=== PATIENT | female | born 1995 | race Caucasian/White ===

== ENCOUNTER 2017-01-01 18:53 | Emergency (ER) | payer BC, OTHER ==
--- NOTE | 2017-01-01 19:23 | EDM.PDOC ---
ED HPI GENERAL MEDICAL PROBLEM - General Chief Complaint: General Stated Complaint: LOWER ABD PAIN, N&V Time Seen by Provider: 01/01/17 19:04 Source of Information: Reports: Patient History Limitations: Reports: No limitations - History of Present Illness INITIAL COMMENTS - FREE TEXT/NARRATIVE: History of present illness: [21-year-old female coming in complaining of lower pelvic pain. Patient indicates there is a slim change B. secondary to unprotected sex and irregular consumption of her control pills. Patient indicates she has had serial bouts of vomiting 3-4 times a day and today she has now presented with some foul diarrhea.] Review of systems: As per history of present illness and below otherwise all systems reviewed and negative. Past medical history: As per history of present illness and as reviewed below otherwise noncontributory. Surgical history: As per history of present illness and as reviewed below otherwise noncontributory. Social history: No reported history of drug or alcohol abuse. Family history: As per history of present illness and as reviewed below otherwise noncontributory. Physical exam: HEENT: Atraumatic, normocephalic, pupils reactive, negative for conjunctival pallor or scleral icterus, mucous membranes moist, throat clear, neck supple, nontender, trachea midline. Lungs: Clear to auscultation, breath sounds equal bilaterally, chest nontender. Heart: S1S2, regular, negative for clicks, rubs, or JVD. Abdomen: Soft, nondistended, nontender. Negative for masses or hepatosplenomegaly. Negative for costovertebral tenderness. Pelvis: Stable nontender. Genitourinary: Deferred. Rectal: Deferred. Extremities: Atraumatic, negative for cords or calf pain. Neurovascular unremarkable. Neuro: Awake, alert, oriented. Cranial nerves II through XII unremarkable. Cerebellum unremarkable. Motor and sensory unremarkable throughout. Exam nonfocal. Patient responded well to fluids and Zofran here without any further signs of nausea vomiting and/or diarrhea the Diagnostics: [CBC, CMP, UA, urine hCG] Therapeutics: [IV and as a] Impression: [Gastroenteritis] Plan: [Zofran her fluid, ADT] Definitive disposition and diagnosis as appropriate pending reevaluation and review of above. Lower Abdominal Pain Score (Numeric/FACES): 3 - Related Data Allergies Allergy/AdvReac Type Severity Reaction Status Date / Time No Known Allergies Allergy Verified 01/01/17 19:11 Home Meds: Home Meds Control 01/01/17 [History] Past Medical History - Past Surgical History Other Musculoskeletal Surgeries/Procedures:: right knee surgery Social & Family History - Tobacco Use Smoking Status *Q: Never Smoker ED ROS GENERAL - Review of Systems Review Of Systems: See Below (See history of present illness) ED EXAM, GENERAL - Physical Exam Exam: See Below (See history of present illness) Course - Vital Signs Last Recorded V/S: Last Vital Signs Temp 36.4 C 01/01/17 19:11 Pulse 75 01/01/17 19:11 Resp 16 01/01/17 19:11 BP 139/86 01/01/17 19:11 Pulse Ox 99 01/01/17 19:11 - Orders/Labs/Meds Labs: Laboratory Tests 01/01/17 01/01/17 01/01/17 Range/Units 19:36 19:36 20:05 WBC 12.08 H (4.0-11.0) K/uL RBC 4.51 (4.30-5.90) M/uL Hgb 13.2 (12.0-16.0) g/dL Hct 40.0 (36.0-46.0) % MCV 88.7 (80.0-98.0) fL MCH 29.3 (27.0-32.0) pg MCHC 33.0 (31.0-37.0) g/dL RDW Std Deviation 43.9 (28.0-62.0) fl RDW Coeff of Larisa 14 (11.0-15.0) % Plt Count 265 (150-400) K/uL MPV 9.90 (7.40-12.00) fL Neut % (Auto) 78.4 (48.0-80.0) % Lymph % (Auto) 16.9 (16.0-40.0) % Loving % (Auto) 3.8 (0.0-15.0) % Eos % (Auto) 0.7 (0.0-7.0) % Baso % (Auto) 0.2 (0.0-1.5) % Neut # (Auto) 9.5 H (1.4-5.7) K/uL Lymph # (Auto) 2.0 (0.6-2.4) K/uL Loving # (Auto) 0.5 (0.0-0.8) K/uL Eos # (Auto) 0.1 (0.0-0.7) K/uL Baso # (Auto) 0.0 (0.0-0.1) K/uL Nucleated RBC % 0.0 /100WBC Nucleated RBCs # 0 K/uL Sodium 138 (136-146) mmol/L Potassium 3.9 (3.5-5.1) mmol/L Chloride 108 (98-110) mmol/L Carbon Dioxide 22 (21-31) mmol/L BUN 10 (6.0-23.0) mg/dL Creatinine 0.8 (0.6-1.5) mg/dL Est Cr Clr Drug Dosing 105.89 mL/min Estimated GFR (MDRD) > 60.0 ml/min Glucose 84 (60-110) mg/dL Calcium 9.5 (8.8-10.8) mg/dL Total Bilirubin 0.3 (0.1-1.5) mg/dL AST 18 (5-40) IU/L ALT 14 (8-54) IU/L Alkaline Phosphatase 47 (40-150) Total Protein 7.6 (6.0-8.0) g/dL Albumin 4.3 (3.5-5.0) g/dL Globulin 3.3 (2.0-3.5) g/dL Albumin/Globulin Ratio 1.3 (1.3-2.8) Urine Color YELLOW Urine Appearance CLEAR Urine pH 8.5 H (5.0-8.0) Ur Specific [place] 1.015 (1.001-1.035) Urine Protein NEGATIVE (NEGATIVE) mg/dL Urine Glucose (UA) NEGATIVE (NEGATIVE) mg/dL Urine Ketones TRACE H (NEGATIVE) mg/dL Urine Occult Blood NEGATIVE (NEGATIVE) Urine Nitrite NEGATIVE (NEGATIVE) Urine Bilirubin NEGATIVE (NEGATIVE) Urine Urobilinogen 0.2 (<2.0) EU/dL Ur Leukocyte Esterase NEGATIVE (NEGATIVE) Urine RBC 0-1 (0-2/HPF) Urine WBC 0-2 (0-5/HPF) Ur Epithelial Cells FEW (NONE-FEW) Amorphous Sediment FEW (NEGATIVE) Urine Bacteria FEW (NEGATIVE) Urine Mucus LIGHT (NONE-MOD) Urine HCG, Qual (NEGATIVE) 04/23/17 Range/Units 20:05 WBC (4.0-11.0) K/uL RBC (4.30-5.90) M/uL Hgb (12.0-16.0) g/dL Hct (36.0-46.0) % MCV (80.0-98.0) fL MCH (27.0-32.0) pg MCHC (31.0-37.0) g/dL RDW Std Deviation (28.0-62.0) fl RDW Coeff of Larisa (11.0-15.0) % Plt Count (150-400) K/uL MPV (7.40-12.00) fL Neut % (Auto) (48.0-80.0) % Lymph % (Auto) (16.0-40.0) % Loving % (Auto) (0.0-15.0) % Eos % (Auto) (0.0-7.0) % Baso % (Auto) (0.0-1.5) % Neut # (Auto) (1.4-5.7) K/uL Lymph # (Auto) (0.6-2.4) K/uL Loving # (Auto) (0.0-0.8) K/uL Eos # (Auto) (0.0-0.7) K/uL Baso # (Auto) (0.0-0.1) K/uL Nucleated RBC % /100WBC Nucleated RBCs # K/uL Sodium (136-146) mmol/L Potassium (3.5-5.1) mmol/L Chloride (98-110) mmol/L Carbon Dioxide (21-31) mmol/L BUN (6.0-23.0) mg/dL Creatinine (0.6-1.5) mg/dL Est Cr Clr Drug Dosing mL/min Estimated GFR (MDRD) ml/min Glucose (60-110) mg/dL Calcium (8.8-10.8) mg/dL Total Bilirubin (0.1-1.5) mg/dL AST (5-40) IU/L ALT (8-54) IU/L Alkaline Phosphatase (40-150) Total Protein (6.0-8.0) g/dL Albumin (3.5-5.0) g/dL Globulin (2.0-3.5) g/dL Albumin/Globulin Ratio (1.3-2.8) Urine Color Urine Appearance Urine pH (5.0-8.0) Ur Specific [place] (1.001-1.035) Urine Protein (NEGATIVE) mg/dL Urine Glucose (UA) (NEGATIVE) mg/dL Urine Ketones (NEGATIVE) mg/dL Urine Occult Blood (NEGATIVE) Urine Nitrite (NEGATIVE) Urine Bilirubin (NEGATIVE) Urine Urobilinogen (<2.0) EU/dL Ur Leukocyte Esterase (NEGATIVE) Urine RBC (0-2/HPF) Urine WBC (0-5/HPF) Ur Epithelial Cells (NONE-FEW) Amorphous Sediment (NEGATIVE) Urine Bacteria (NEGATIVE) Urine Mucus (NONE-MOD) Urine HCG, Qual NEGATIVE (NEGATIVE) Meds: Medications Discontinued Medications Generic Name Dose Route Start Last Admin Trade Name Freq PRN Reason Stop Dose Admin Sodium Chloride 1,000 mls @ 999 mls/hr 01/01/17 20:15 01/01/17 20:30 Normal Saline IV 01/01/17 21:15 999 mls/hr STAT ONE Administration Ketorolac Tromethamine 30 mg 01/01/17 20:15 01/01/17 20:31 Toradol IVPUSH 01/01/17 20:16 30 mg ONETIME ONE Administration Ondansetron HCl 4 mg 01/01/17 20:26 01/01/17 20:31 Zofran IVPUSH 01/01/17 20:27 4 mg ONETIME ONE Administration Departure - Departure Time of Disposition: 21:16 Disposition: Home, Self-Care 01 Condition: good Clinical Impression: Gastroenteritis Instructions: Viral Gastroenteritis, Adult, [id number] Forms: ED Department Discharge Additional Instructions: The following information is given to patients seen in the emergency department who are being discharged to home. This information is to outline your options for follow-up care. We provide all patients seen in our emergency department with a follow-up referral. The need for follow-up, as well as the timing and circumstances, are variable depending upon the specifics of your emergency department visit. If you don't have a primary care physician on staff, we will provide you with a referral. We always advise you to contact your personal physician following an emergency department visit to inform them of the circumstance of the visit and for follow-up with them and/or the need for any referrals to a consulting specialist. The emergency department will also refer you to a specialist when appropriate. This referral assures that you have the opportunity for follow-up care with a specialist. All of these measure are taken in an effort to provide you with optimal care, which includes your follow-up. Under all circumstances we always encourage you to contact your private physician who remains a resource for coordinating your care. When calling for follow-up care, please make the office aware that this follow-up is from your recent emergency room visit. If for any reason you are refused follow-up, please contact the [facility] at and asked to speak to the emergency department charge nurse. Take medication as directed Followup with PCP 1-2 days Return to ED as needed as
[2017-01-01 20:07] LABS: CHLORIDE,CL 108 mmol/L (98-110); SODIUM,NA 138 mmol/L (136-146)
[2017-01-01] MEDS ORDERED: Sodium Chloride 0.9% 1,000 ML IV ONE (20:15)
[2017-01-01] MEDS ORDERED: Ketorolac 30 MG/ML SDV IVPUSH ONE (20:15)
[2017-01-01] MEDS ORDERED: Ondansetron 4 MG/2 ML SDV IVPUSH ONE (20:26)
[2017-01-01 21:58] VITALS: BP 127/74
== END 2017-01-01 21:57 | disposition home or self-care (01) ==
LOC: MW.ED 18:53
DX: K52.9 Noninfective gastroenteritis and colitis, unspecified (principal)
CPT/HCPCS: 36415; 80053; 81001; 81025; 85025; 96361; 96374; 96375; 99284; J1885; J2405; J7040

== ENCOUNTER 2022-07-04 00:08 | Inpatient (IN) | payer MEDICAID ==
[2022-07-04] MEDS ORDERED: Sodium Chloride 0.9% 10 ML Syringe FLUSH PRN (00:21)
[2022-07-04] MEDS ORDERED: Sodium Chloride 0.9% 20 ML SDV IV PRN (00:21)
[2022-07-04] MEDS ORDERED: Carboprost Tromethamine 250 MCG/1 ML Amp IM PRN (00:21)
[2022-07-04] MEDS ORDERED: Sodium Chloride 0.9% 2.5 ML Syringe FLUSH PRN (00:21)
[2022-07-04] MEDS ORDERED: Butorphanol 1 MG/ML SDV IVPUSH PRN (00:21)
[2022-07-04] MEDS ORDERED: Methylergonovine 0.2 MG/1 ML Amp IM PRN (00:21)
[2022-07-04] MEDS ORDERED: Tranexamic Acid 1,000 MG in Sodium Chloride 0.9% 100 ML IV PRN (00:21)
[2022-07-04] MEDS ORDERED: Misoprostol 200 MCG Tab PO PRN (00:21)
[2022-07-04] MEDS ORDERED: Ondansetron 4 MG/2 ML SDV IVPUSH PRN (00:21)
[2022-07-04] MEDS ORDERED: Lidocaine 1% 50 ML MDV INJECT PRN (00:21)
[2022-07-04] MEDS ORDERED: Water For Irrigation,Sterile 1,000 ML Container IRR PRN (00:21)
[2022-07-04] MEDS ORDERED: Terbutaline 1 MG/ML SDV SUBCUT PRN (00:21)
[2022-07-04] MEDS ORDERED: Misoprostol 25 MCG (1/4 of 100 MCG) Tab VAG PRN ×2 (00:30→04:30)
[2022-07-04] MEDS ORDERED: Oxytocin/0.9 % Sodium Chloride 30 UNIT/500 ML BAG IV SCH ×2 (00:30)
[2022-07-04] MEDS: Lactated Ringers 1,000 ML IV SCH ×3 (09:20→16:03)
[2022-07-04] MEDS ORDERED: Ropivacaine/PF 400 MG/200 ML PCA ONE (15:27)
[2022-07-04] MEDS ORDERED: Phenylephrine HCl In 0.9% NaCl 1 MG/10 ML Vial IVPUSH SCH (15:45)
[2022-07-04] MEDS ORDERED: ePHEDrine 50 MG/ML SDV IVPUSH PRN (15:45)
[2022-07-04] MEDS ORDERED: Ropivacaine HCl/PF 400 MG in Premix Bag 1 BAG EPIDUR SCH (15:45)
[2022-07-04] MEDS ORDERED: Lidocaine 1% 50 ML MDV ONE (20:22)
[2022-07-04] MEDS ORDERED: Tranexamic Acid 1,000 MG/10 ML Vial ONE (20:22)
[2022-07-04] MEDS ORDERED: Misoprostol 200 MCG Tab ONE (20:22)
[2022-07-04] MEDS ORDERED: Lanolin 100% Cream 7 GM Tube TOP PRN (21:07)
[2022-07-04] MEDS ORDERED: Docusate Sodium 100 MG Cap PO PRN (21:07)
[2022-07-04] MEDS ORDERED: Witch Hazel Medicated Pads 40/Jar TOP PRN (21:07)
[2022-07-04] MEDS ORDERED: Bisacodyl 10 MG Supp RECTAL PRN (21:07)
[2022-07-04] MEDS ORDERED: oxyCODONE 5 MG Tab PO PRN (21:07)
[2022-07-04] MEDS ORDERED: Benzocaine/Menthol 20%-0.5% Spray 78 GM Cannister TOP PRN (21:07)
[2022-07-04] MEDS ORDERED: Ibuprofen 400 MG Tab PO PRN (21:07)
[2022-07-04] MEDS ORDERED: Acetaminophen 500 MG Tab PO PRN (21:07)
[2022-07-04] MEDS ORDERED: Ibuprofen 800 MG Tab PO PRN (21:07)
[2022-07-05] MEDS: Acetaminophen 500 MG Tab PO PRN ×2 (02:53→08:36)
[2022-07-05] MEDS ORDERED: Sodium Ferric Gluconate Cmplex 125 MG in Sodium Chloride 0.9% 100 ML IV ONE (09:30)
[2022-07-06 08:00] VITALS: BP 101/56; PULSE 74
== END 2022-07-06 11:07 | disposition home or self-care (01) | DRG 807 ==
LOC: MW.OBCHECK 00:08 → MW.OB 00:08 → MW.OBCHECK 00:09 → MW.OB 00:09 → OBSVTOIN 20:46 → MW.OB 07-05 00:29
PROVIDERS: ADMIT Obstetrics & Gynecology; ATTEND Obstetrics & Gynecology
PROC: 10E0XZZ Delivery of Products of Conception, External Approach (ICD-10-PCS; principal; 2022-07-04)
PROC: 10907ZC Drainage of Amniotic Fluid, Therapeutic from Products of Conception, Via Natural or Artificial Opening (ICD-10-PCS; 2022-07-04)
PROC: 3E033VJ Introduction of Other Hormone into Peripheral Vein, Percutaneous Approach (ICD-10-PCS; 2022-07-04)
PROC: 3E0P7VZ Introduction of Hormone into Female Reproductive, Via Natural or Artificial Opening (ICD-10-PCS; 2022-07-04)
PROC: 3E0R3BZ Introduction of Anesthetic Agent into Spinal Canal, Percutaneous Approach (ICD-10-PCS; 2022-07-04)
PROC: 00HU33Z Insertion of Infusion Device into Spinal Canal, Percutaneous Approach (ICD-10-PCS; 2022-07-04)
DX: O24.420 Gestational diabetes mellitus in childbirth, diet controlled (principal); Z37.0 Single live birth; Z3A.39 39 weeks gestation of pregnancy; Z20.822 Contact with and (suspected) exposure to COVID-19
CPT/HCPCS: 01967; 36415; 51702; 59025; 59409; 80305-QW; 82803; 82947; 85014; 85018; 85027; 86592; 86850; 86900; 86901; A9270-GY; J2590; J2795; J3490; J7120; U0002

== ENCOUNTER 2023-04-20 23:45 | Emergency (ER) | payer OTHER, MEDICAID ==
[2023-04-21 01:06] VITALS: BP 119/70; PULSE 70
== END 2023-04-21 01:05 | disposition home or self-care (01) ==
LOC: MW.ED 23:45
DX: S50.01XA Contusion of right elbow, initial encounter (principal); M25.562 Pain in left knee; V03.90XA Pedestrian on foot injured in collision with car, pick-up truck or van, unspecified whether traffic or nontraffic accident, initial encounter
CPT/HCPCS: 73070; 73562; 99283; G0390

== ENCOUNTER 2025-03-11 12:18 | Observation (INO) | payer MEDICAID ==
[2025-03-11] MEDS ORDERED: Butorphanol 1 MG/ML SDV IVPUSH PRN (14:16)
[2025-03-11] MEDS ORDERED: Water For Irrigation,Sterile 1,000 ML Container IRR PRN (14:16)
[2025-03-11] MEDS ORDERED: 50% Dextrose in Water 50 ML Syringe IVPUSH PRN (14:19)
[2025-03-11] MEDS ORDERED: Lactated Ringers 1,000 ML IV SCH (14:30)
[2025-03-11] MEDS: Betamethasone Acetate/Betamethasone Sod Phosphate 6 MG/1 ML MDV IM SCH (14:55)
[2025-03-11] MEDS ORDERED: ePHEDrine 50 MG/ML SDV IVPUSH PRN (17:22)
[2025-03-11] MEDS ORDERED: dexmedeTOMIDine HCl 200 MCG/2 ML SDV EPIDUR SCH (17:30)
[2025-03-11] MEDS ORDERED: Ropivacaine HCl/PF 400 MG in Premix Bag 1 BAG EPIDUR SCH (17:30)
[2025-03-12 05:32] LABS: BASOPHILS ABSOLUTE AUTO 0.02 K/uL (0.00-0.20); BASOPHILS PERCENT AUTO 0.1 % (0.0-1.0); EOSINOPHILS ABSOLUTE AUTO 0.20 K/uL (0.00-0.45); EOSINOPHILS PERCENT AUTO 1.3 % (0.0-6.0); IMMATURE GRAN ABSOLUTE AUTO 0.16 K/uL (0.00-0.05); IMMATURE GRAN PERCENT AUTO 1.0 % (0.0-0.4); LYMPHOCYTES ABSOLUTE AUTO 2.06 K/uL (1.00-4.80); LYMPHOCYTES PERCENT AUTO 13.2 % (24.0-44.0); MEAN PLATELET VOLUME 10.6 fL (9.4-12.3); MONOCYTES ABSOLUTE AUTO 0.65 K/uL (0.00-0.80); MONOCYTES PERCENT AUTO 4.2 % (0.0-8.0); NEUTROPHILS ABSOLUTE AUTO 12.46 K/uL (1.80-7.70); NEUTROPHILS PERCENT AUTO 80.2 % (41.0-71.0); NRBC ABSOLUTE 0.02 K/uL (0.00-0.02); NRBC PERCENT 0.1 /100WBC (0.0-0.2); PLATELET COUNT,PLT 252 K/uL (150-400); RED BLOOD CELL COUNT 3.71 M/uL (4.10-5.30); WHITE BLOOD CELL COUNT,WBC 15.55 K/uL (3.9-11.3)
[2025-03-12 05:59] LABS: A/G RATIO 0.6 (0.9-1.6); ALANINE AMINOTRANSFERASE,ALT 25.0 IU/L (14-63); ASPARTATE AMNIOTRANSFERASE,AST 13.0 IU/L (15-37); BILIRUBIN TOTAL 0.2 mg/dL (0.2-1.0); BLOOD UREA NITROGEN,BUN 7.0 mg/dL (7.0-18.0); CARBON DIOXIDE,CO2 21.6 mmol/L (21.0-32.0); CHLORIDE,CL 104.0 mmol/L (98-107); CREATININE 0.8 mg/dL (0.6-1.0); EST CRCL DRUG DOSING (CG) 98.88 mL/min; GLUCOSE RANDOM 132.0 mg/dL (74-106); POTASSIUM,K 4.1 mmol/L (3.5-5.1); PROTEIN TOTAL,TP 5.9 g/dL (6.4-8.2); SODIUM,NA 137.0 mmol/L (136-145)
[2025-03-12 06:06] LABS: ESTIMATED GFR 104.0 mL/min (>60)
[2025-03-12] MEDS: metFORMIN 500 MG Tab.ER PO SCH (08:39)
== END 2025-03-13 16:15 | disposition home or self-care (01) ==
LOC: MW.OBCHECK 12:18 → MW.OB 12:19 → MW.OBCHECK 14:36
PROVIDERS: ADMIT Obstetrics & Gynecology; ATTEND Obstetrics & Gynecology
DX: O24.414 Gestational diabetes mellitus in pregnancy, insulin controlled (principal); O99.210 Obesity complicating pregnancy, unspecified trimester; E66.812 Obesity, class 2; O99.013 Anemia complicating pregnancy, third trimester; O99.333 Smoking (tobacco) complicating pregnancy, third trimester; O41.03X0 Oligohydramnios, third trimester, not applicable or unspecified; Z68.38 Body mass index [BMI] 38.0-38.9, adult; Z3A.35 35 weeks gestation of pregnancy; Z79.84 Long term (current) use of oral hypoglycemic drugs; Z79.4 Long term (current) use of insulin; Z86.59 Personal history of other mental and behavioral disorders; Z79.899 Other long term (current) drug therapy
CPT/HCPCS: 36415; 59025; 76815; 76817; 76819; 80053; 82947; 85025; 86592; 96372; A9270; G0378; J0702; 99221; 99231; 99238

== ENCOUNTER 2025-04-02 11:48 | Inpatient (IN) | payer MEDICAID ==
[2025-04-02] MEDS ORDERED: Ondansetron 4 MG/2 ML SDV IVPUSH PRN (13:34)
[2025-04-02] MEDS ORDERED: Terbutaline 1 MG/ML SDV SUBCUT PRN (13:34)
[2025-04-02] MEDS ORDERED: Water For Irrigation,Sterile 1,000 ML Container IRR PRN (13:34)
[2025-04-02] MEDS ORDERED: Butorphanol 1 MG/ML SDV IVPUSH PRN (13:34)
[2025-04-02] MEDS ORDERED: Carboprost Tromethamine 250 MCG/1 mL Vial IM PRN (13:34)
[2025-04-02] MEDS ORDERED: Sodium Chloride 0.9% 10 ML Syringe FLUSH PRN (13:34)
[2025-04-02] MEDS ORDERED: Sodium Chloride 0.9% 2.5 ML Syringe FLUSH PRN (13:34)
[2025-04-02] MEDS: Lactated Ringers 1,000 ML IV SCH (14:09)
[2025-04-02] MEDS: Misoprostol 25 MCG (1/4 of 100 MCG) Tab VAG PRN (14:41)
[2025-04-02 14:42] LABS: MEAN PLATELET VOLUME 10.6 fL (9.4-12.3); NRBC ABSOLUTE 0.02 K/uL (0.00-0.02); NRBC PERCENT 0.2 /100WBC (0.0-0.2); PLATELET COUNT,PLT 228 K/uL (150-400); RED BLOOD CELL COUNT 4.21 M/uL (4.10-5.30); WHITE BLOOD CELL COUNT,WBC 10.67 K/uL (3.9-11.3)
[2025-04-02 14:49] LABS: APPEARANCE,URINE CLEAR; GLUCOSE,URINE NEGATIVE (NEGATIVE); OCCULT BLOOD,URINE LARGE (NEGATIVE)
[2025-04-02 14:59] LABS: EPITHELIAL CELLS,URINE FEW (NONE-FEW)
[2025-04-02 15:10] LABS: A/G RATIO 0.6 (0.9-1.6); ALANINE AMINOTRANSFERASE,ALT 23 IU/L (14-63); ASPARTATE AMNIOTRANSFERASE,AST 19 IU/L (15-37); BILIRUBIN TOTAL 0.2 mg/dL (0.2-1.0); BLOOD UREA NITROGEN,BUN 8 mg/dL (7.0-18.0); CARBON DIOXIDE,CO2 19.9 mmol/L (21.0-32.0); CHLORIDE,CL 105 mmol/L (98-107); CREATININE 0.9 mg/dL (0.6-1.0); GLUCOSE RANDOM 112 mg/dL (74-106); POTASSIUM,K 3.9 mmol/L (3.5-5.1); PROTEIN TOTAL,TP 6.8 g/dL (6.4-8.2); SODIUM,NA 139 mmol/L (136-145)
[2025-04-02 15:15] LABS: ESTIMATED GFR 90 mL/min (>60)
[2025-04-02] MEDS ORDERED: ePHEDrine 50 MG/ML SDV IVPUSH PRN (16:06)
[2025-04-02] MEDS ORDERED: dexmedeTOMIDine HCl 200 MCG/2 ML SDV EPIDUR SCH (16:15)
[2025-04-02] MEDS: Oxytocin/0.9 % Sodium Chloride 30 UNIT/500 ML BAG IV SCH ×2 (18:45→20:05)
[2025-04-02] MEDS: Ropivacaine HCl/PF 400 MG in Premix Bag 1 BAG EPIDUR SCH (19:25)
[2025-04-02] MEDS ORDERED: Benzocaine/Menthol 20%-0.5% Spray 78 GM Cannister TOP PRN (20:33)
[2025-04-02] MEDS ORDERED: Witch Hazel Medicated Pads 40/Jar TOP PRN (20:33)
[2025-04-02] MEDS ORDERED: Lanolin 100% Cream 7 GM Tube TOP PRN (20:33)
[2025-04-02 21:17] LABS: PH,UMBILICAL ARTERIAL 7.454 (7.18-7.38); PH,UMBILICAL VENOUS 7.35 (7.25-7.45)
[2025-04-03 06:08] LABS: BLOOD UREA NITROGEN,BUN 9.0 mg/dL (7.0-18.0); CARBON DIOXIDE,CO2 20.8 mmol/L (21.0-32.0); CHLORIDE,CL 107.0 mmol/L (98-107); CREATININE 1.0 mg/dL (0.6-1.0); EST CRCL DRUG DOSING (CG) 80.64 mL/min; GLUCOSE RANDOM 92.0 mg/dL (74-106); POTASSIUM,K 3.7 mmol/L (3.5-5.1); SODIUM,NA 139.0 mmol/L (136-145)
[2025-04-03 06:11] LABS: ESTIMATED GFR 79.0 mL/min (>60)
[2025-04-04 04:31] VITALS: PULSE 73
[2025-04-04 08:27] VITALS: BP 141/71
== END 2025-04-04 11:20 | disposition home or self-care (01) | DRG 807 ==
LOC: MW.OBCHECK 11:48 → MW.OB 11:49 → MW.OBCHECK 13:58 → OBSVTOIN 20:05 → MW.OB 22:41
PROVIDERS: ADMIT Obstetrics & Gynecology; ATTEND Obstetrics & Gynecology
PROC: 10E0XZZ Delivery of Products of Conception, External Approach (ICD-10-PCS; principal; 2025-04-02)
PROC: 3E033VJ Introduction of Other Hormone into Peripheral Vein, Percutaneous Approach (ICD-10-PCS; 2025-04-02)
PROC: 3E0DXGC Introduction of Other Therapeutic Substance into Mouth and Pharynx, External Approach (ICD-10-PCS; 2025-04-02)
PROC: 3E0R3BZ Introduction of Anesthetic Agent into Spinal Canal, Percutaneous Approach (ICD-10-PCS; 2025-04-02)
DX: O99.824 Streptococcus B carrier state complicating childbirth (principal); Z37.0 Single live birth; O42.92 Full-term premature rupture of membranes, unspecified as to length of time between rupture and onset of labor; O24.429 Gestational diabetes mellitus in childbirth, unspecified control; O99.214 Obesity complicating childbirth; O99.02 Anemia complicating childbirth; Z98.890 Other specified postprocedural states; Z3A.37 37 weeks gestation of pregnancy; Z79.899 Other long term (current) drug therapy; Z79.84 Long term (current) use of oral hypoglycemic drugs
CPT/HCPCS: 01967; 36415; 59025; 59409; 80048; 80053; 81001; 82803; 82947; 84112; 84550; 85014; 85018; 85027; 86592; 86850; 86900; 86901; A9270-GY; J0290; J2590; J2795; J7120